=== PATIENT | male | born 1980 | race Caucasian/White ===

== ENCOUNTER 2017-11-25 13:04 | Emergency (ER) | payer OTHER, BC ==
--- NOTE | 2017-11-25 13:42 | EDM.PDOC ---
ED HPI GENERAL MEDICAL PROBLEM - General Chief Complaint: Head Injury Stated Complaint: FELL AND HIT HIS HEAD Time Seen by Provider: 11/25/17 13:16 - History of Present Illness INITIAL COMMENTS - FREE TEXT/NARRATIVE: HISTORY AND PHYSICAL: History of present illness: The patient is a 37-year-old male who presents from his job at the [employer] after having a simple fall and complaining of some posterior head left neck and left upper back pain. The patient says he was in his usual state of good health when he was at work and was walking backwards up an incline and lost his footing and fell backwards hitting his left upper chest wall and head on a door jam and then falling to the ground. He did not pass out or blackout and has no neck pain or midline thoracic or lower back pain. He has no neurosensory changes in his arms and no weakness but he has some ache to the left upper back area where he impacted the door jam. He doesn't have any nausea or vomiting no chest pain or shortness of breath and no extremity complaints. He did not take any medication prior to coming to the ED and says that he actually did not want to even come here for evaluation but his employer required it. Review of systems: As per history of present illness and below otherwise all systems reviewed and negative. Past medical history: As per history of present illness and as reviewed below otherwise noncontributory. Surgical history: As per history of present illness and as reviewed below otherwise noncontributory. Social history: No reported history of drug or alcohol abuse. Family history: As per history of present illness and as reviewed below otherwise noncontributory. Physical exam: General: Well-developed well-nourished man who is nontoxic and mildly overweight. He ambulated into the ED without distress and vital signs are noted by me HEENT: Atraumatic, normocephalic, there is no palpable bony deformity of the skull and no scalp soft tissue swelling or trauma is appreciated, EOMs are intact, pupils reactive, negative for conjunctival pallor or scleral icterus, mucous membranes moist, throat clear, neck supple, nontender, trachea midline. There are no midline step-offs tenderness defects of the cervical spine and no paraspinal trapezius muscle tenderness on palpation. Lungs: Clear to auscultation, breath sounds equal bilaterally, chest nontender. Heart: S1S2, regular rate and rhythm no overt murmurs Abdomen: Soft, nondistended, nontender. NABS Pelvis: Deferred Genitourinary: Deferred. Rectal: Deferred. Extremities: Atraumatic, full range of motion without defects or deficits negative for cords or calf pain. Neurovascular unremarkable. Neuro: Awake, alert, oriented. Cranial nerves II through XII unremarkable. Cerebellum unremarkable. Motor and sensory unremarkable throughout. Exam nonfocal. Back: There are no midline step-offs tenderness defects of the thoracic or lumbar spine and there is some mild soft tissue tenderness with palpation of the entire left upper back area without defects or deformities. Diagnostics: [] Therapeutics: The patient was offered Tylenol or Motrin and defers at this time Impression: Contusion of left upper back and head status post minor fall Definitive disposition and diagnosis as appropriate pending reevaluation and review of above. head Pain Score (Numeric/FACES): 8 - Related Data Allergies Allergy/AdvReac Type Severity Reaction Status Date / Time No Known Allergies Allergy Verified 11/25/17 13:18 Home Meds: Home Meds . [No Known Home Meds] 05/04/16 [History] Past Medical History - Past Health History Medical/Surgical History: Denies Medical/Surgical History - Infectious Disease History Infectious Disease History: Reports: Chicken Pox, Measles Social & Family History - Family History Family Medical History: Unobtainable - Tobacco Use Smoking Status *Q: Never Smoker - Caffeine Use Caffeine Use: Reports: Coffee, Energy Drinks - Alcohol Use Days Per Week of Alcohol Use: 2 Number of Drinks Per Day: 1 Total Drinks Per Week: 2 - Recreational Drug Use Recreational Drug Use: No ED ROS GENERAL - Review of Systems Review Of Systems: ROS reveals no pertinent complaints other than HPI. ED EXAM, HEAD INJURY - Physical Exam Exam: See Below (See dictation) Course - Vital Signs Last Recorded V/S: Last Vital Signs Temp 36.1 C 11/25/17 13:19 Pulse 60 11/25/17 13:19 Resp 18 11/25/17 13:19 BP 139/80 11/25/17 13:19 Pulse Ox 96 11/25/17 13:19 Departure - Departure Time of Disposition: 13:43 Disposition: Home, Self-Care 01 Condition: Good Clinical Impression: Contusion of upper back Qualifiers: Encounter type: initial encounter Laterality: left Qualified Code(s): S20.222A - Contusion of left back wall of thorax, initial encounter Contusion of head Qualifiers: Encounter type: initial encounter Contusion of head detail: unspecified part of head Qualified Code(s): S00.93XA - Contusion of unspecified part of head, initial encounter - Discharge Information Referrals: PCP,None [Primary Care Provider] - Additional Instructions: The following information is given to patients seen in the emergency department who are being discharged to home. This information is to outline your options for follow-up care. We provide all patients seen in our emergency department with a follow-up referral. The need for follow-up, as well as the timing and circumstances, are variable depending upon the specifics of your emergency department visit. If you don't have a primary care physician on staff, we will provide you with a referral. We always advise you to contact your personal physician following an emergency department visit to inform them of the circumstance of the visit and for follow-up with them and/or the need for any referrals to a consulting specialist. The emergency department will also refer you to a specialist when appropriate. This referral assures that you have the opportunity for followup care with a specialist. All of these measure are taken in an effort to provide you with optimal care, which includes your followup. Under all circumstances we always encourage you to contact your private physician who remains a resource for coordinating your care. When calling for followup care, please make the office aware that this follow-up is from your recent emergency room visit. If for any reason you are refused follow-up, please contact the [facility] emergency department at and ask to speak to the emergency department charge nurse. [facility] Primary care- Internal Medicine and Family [address] [address] Use ice to all areas of pain and swelling and expect aches for the next several days to one week. Use [id number] Tylenol or ibuprofen for pain. Please call and follow-up with your provider in the clinic or one of our providers in the next few days for reevaluation and further care. Return to ER as needed and as we discussed
[2017-11-25 14:03] VITALS: BP 134/75
== END 2017-11-25 14:00 | disposition home or self-care (01) ==
LOC: MW.ED 13:04
DX: S20.222A Contusion of left back wall of thorax, initial encounter (principal); S00.93XA Contusion of unspecified part of head, initial encounter; W19.XXXA Unspecified fall, initial encounter
CPT/HCPCS: 99282

== ENCOUNTER 2024-06-19 16:53 | Emergency (ER) | payer OTHER ==
[2024-06-19] MEDS: Sodium Chloride 0.9% 1,000 ML IV ONE (20:13)
[2024-06-19 20:27] LABS: APPEARANCE,URINE CLEAR; BILIRUBIN,URINE NEGATIVE (NEGATIVE); COLOR,URINE YELLOW; GLUCOSE,URINE NEGATIVE (NEGATIVE); KETONES,URINE NEGATIVE (NEGATIVE); LEUKOCYTE ESTERASE,URINE NEGATIVE (NEGATIVE); NITRITE,URINE NEGATIVE (NEGATIVE); OCCULT BLOOD,URINE NEGATIVE (NEGATIVE); PROTEIN,URINE NEGATIVE (NEGATIVE); UROBILINOGEN,URINE 0.2 EU/dL (<2.0)
[2024-06-19 20:37] LABS: BASOPHILS ABSOLUTE AUTO 0.03 K/uL (0.00-0.20); BASOPHILS PERCENT AUTO 0.3 % (0.0-1.0); EOSINOPHILS ABSOLUTE AUTO 0.17 K/uL (0.00-0.45); EOSINOPHILS PERCENT AUTO 1.6 % (0.0-6.0); HEMATOCRIT 40.8 % (42.0-52.0); HEMOGLOBIN 13.8 g/dL (14.0-18.0); IMMATURE GRAN ABSOLUTE AUTO 0.04 K/uL (0.00-0.05); IMMATURE GRAN PERCENT AUTO 0.4 % (0.0-0.4); LYMPHOCYTES ABSOLUTE AUTO 3.57 K/uL (1.00-4.80); LYMPHOCYTES PERCENT AUTO 33.4 % (24.0-44.0); MEAN CORPUSCULAR HGB CONC 33.8 g/dL (32.0-36.0); MEAN CORPUSCULAR VOLUME 88.7 fL (83.0-99.0); MEAN PLATELET VOLUME 10.4 fL (9.4-12.4); MONOCYTES ABSOLUTE AUTO 1.09 K/uL (0.00-0.80); MONOCYTES PERCENT AUTO 10.2 % (0.0-8.0); NEUTROPHILS PERCENT AUTO 54.1 % (41.0-71.0); PLATELET COUNT,PLT 257 K/uL (150-400)
[2024-06-19 20:51] LABS: INR 1.05 (0.86-1.11); PTT,PARTIAL THROMBOPLSTIN TIME 28.2 SEC (23.9-30.7)
[2024-06-19] MEDS: Iopamidol 755 MG/ML 500 ML Multipack Bottle IVPUSH ONE (20:58)
[2024-06-19 21:21] LABS: A/G RATIO 0.9 (0.9-1.6); ALBUMIN 3.8 g/dL (3.4-5.0); BILIRUBIN TOTAL 0.2 mg/dL (0.2-1.0); CALCIUM 8.7 mg/dL (8.5-10.1); CARBON DIOXIDE,CO2 29.5 mmol/L (21.0-32.0); EST CRCL DRUG DOSING (CG) 83.71 mL/min; MAGNESIUM 2.2 mg/dL (1.8-2.4); PROTEIN TOTAL,TP 7.9 g/dL (6.4-8.2)
[2024-06-19] MEDS: Ciprofloxacin 500 MG Tab PO STA (22:05)
[2024-06-19] MEDS: metroNIDAZOLE 250 MG Tab PO ONE (22:05)
[2024-06-19 22:19] VITALS: BP 150/80; PULSE 74
== END 2024-06-19 22:14 | disposition home or self-care (01) ==
LOC: MW.ED 16:53
DX: K57.32 Diverticulitis of large intestine without perforation or abscess without bleeding (principal); R20.2 Paresthesia of skin; Z75.8 Other problems related to medical facilities and other health care
CPT/HCPCS: 36415; 70450; 70496; 70498; 74177; 80053; 81003; 82947; 83690; 83735; 85025; 85610; 85730; 96360; 99284; A9270; J7030; Q9967

== ENCOUNTER 2025-04-24 13:51 | Inpatient (IN) | payer OTHER ==
[2025-04-24] MEDS ORDERED: Sodium Chloride 0.9% 10 ML Syringe FLUSH PRN ×2 (14:24→18:10)
[2025-04-24] MEDS ORDERED: Sodium Chloride 0.9% 2.5 ML Syringe FLUSH PRN ×2 (14:24→18:10)
[2025-04-24 14:30] LABS: BASOPHILS ABSOLUTE AUTO 0.05 K/uL (0.00-0.20); BASOPHILS PERCENT AUTO 0.4 % (0.0-1.0); EOSINOPHILS ABSOLUTE AUTO 0.16 K/uL (0.00-0.45); EOSINOPHILS PERCENT AUTO 1.3 % (0.0-6.0); IMMATURE GRAN ABSOLUTE AUTO 0.03 K/uL (0.00-0.05); IMMATURE GRAN PERCENT AUTO 0.2 % (0.0-0.4); LYMPHOCYTES ABSOLUTE AUTO 2.49 K/uL (1.00-4.80); LYMPHOCYTES PERCENT AUTO 20.6 % (24.0-44.0); MEAN PLATELET VOLUME 10.6 fL (9.4-12.4); MONOCYTES ABSOLUTE AUTO 1.01 K/uL (0.00-0.80); MONOCYTES PERCENT AUTO 8.3 % (0.0-8.0); NEUTROPHILS ABSOLUTE AUTO 8.37 K/uL (1.80-7.70); NEUTROPHILS PERCENT AUTO 69.2 % (41.0-71.0); NRBC ABSOLUTE 0.00 K/uL (0.00-0.02); NRBC PERCENT 0.0 /100WBC (0.0-0.2); PLATELET COUNT,PLT 282 K/uL (150-400); RED BLOOD CELL COUNT 5.06 M/uL (4.52-5.90); WHITE BLOOD CELL COUNT,WBC 12.11 K/uL (3.9-11.3)
[2025-04-24 14:38] LABS: INR 1.06 (0.86-1.11); PTT,PARTIAL THROMBOPLSTIN TIME 21.4 SEC (23.9-30.7)
[2025-04-24 14:47] LABS: A/G RATIO 0.9 (0.9-1.6); ALANINE AMINOTRANSFERASE,ALT 40.0 IU/L (14-63); ASPARTATE AMNIOTRANSFERASE,AST 32.0 IU/L (15-37); BILIRUBIN TOTAL 0.3 mg/dL (0.2-1.0); BLOOD UREA NITROGEN,BUN 21.0 mg/dL (7.0-18.0); CARBON DIOXIDE,CO2 30.3 mmol/L (21.0-32.0); CHLORIDE,CL 99.0 mmol/L (98-107); CREATININE 1.1 mg/dL (0.8-1.3); EST CRCL DRUG DOSING (CG) 78.14 mL/min; ESTIMATED GFR 85.0 mL/min (>60); GLUCOSE RANDOM 121.0 mg/dL (74-106); POTASSIUM,K 3.9 mmol/L (3.5-5.1); PROTEIN TOTAL,TP 8.7 g/dL (6.4-8.2); SODIUM,NA 139.0 mmol/L (136-148)
[2025-04-24 14:52] LABS: APPEARANCE,URINE CLEAR; GLUCOSE,URINE NEGATIVE (NEGATIVE); OCCULT BLOOD,URINE NEGATIVE (NEGATIVE)
[2025-04-24] MEDS: Iopamidol 755 MG/ML 500 ML Multipack Bottle IVPUSH STA (15:42)
[2025-04-24] MEDS ORDERED: Naloxone 0.4 MG/ML SDV IVPUSH PRN (18:10)
[2025-04-24] MEDS ORDERED: Ondansetron 4 MG/2 ML SDV IVPUSH PRN (18:10)
[2025-04-24] MEDS: Pantoprazole 40 MG in Sodium Chloride 0.9% 20 ML IVPUSH SCH (19:15)
[2025-04-25 05:43] LABS: BASOPHILS ABSOLUTE AUTO 0.04 K/uL (0.00-0.20); BASOPHILS PERCENT AUTO 0.4 % (0.0-1.0); EOSINOPHILS ABSOLUTE AUTO 0.14 K/uL (0.00-0.45); EOSINOPHILS PERCENT AUTO 1.5 % (0.0-6.0); IMMATURE GRAN ABSOLUTE AUTO 0.04 K/uL (0.00-0.05); IMMATURE GRAN PERCENT AUTO 0.4 % (0.0-0.4); LYMPHOCYTES ABSOLUTE AUTO 2.27 K/uL (1.00-4.80); LYMPHOCYTES PERCENT AUTO 23.7 % (24.0-44.0); MEAN PLATELET VOLUME 10.2 fL (9.4-12.4); MONOCYTES ABSOLUTE AUTO 0.97 K/uL (0.00-0.80); MONOCYTES PERCENT AUTO 10.1 % (0.0-8.0); NEUTROPHILS ABSOLUTE AUTO 6.13 K/uL (1.80-7.70); NEUTROPHILS PERCENT AUTO 63.9 % (41.0-71.0); NRBC ABSOLUTE 0.00 K/uL (0.00-0.02); NRBC PERCENT 0.0 /100WBC (0.0-0.2); PLATELET COUNT,PLT 229 K/uL (150-400); RED BLOOD CELL COUNT 4.49 M/uL (4.52-5.90); WHITE BLOOD CELL COUNT,WBC 9.59 K/uL (3.9-11.3)
[2025-04-25 06:28] LABS: A/G RATIO 0.9 (0.9-1.6); ALANINE AMINOTRANSFERASE,ALT 33.0 IU/L (14-63); ASPARTATE AMNIOTRANSFERASE,AST 19.0 IU/L (15-37); BILIRUBIN TOTAL 0.5 mg/dL (0.2-1.0); BLOOD UREA NITROGEN,BUN 12.0 mg/dL (7.0-18.0); CARBON DIOXIDE,CO2 28.0 mmol/L (21.0-32.0); CHLORIDE,CL 103.0 mmol/L (98-107); CREATININE 1.0 mg/dL (0.8-1.3); EST CRCL DRUG DOSING (CG) 86.39 mL/min; ESTIMATED GFR 96.0 mL/min (>60); GLUCOSE RANDOM 87.0 mg/dL (74-106); POTASSIUM,K 4.0 mmol/L (3.5-5.1); PROTEIN TOTAL,TP 7.2 g/dL (6.4-8.2); SODIUM,NA 139.0 mmol/L (136-148)
[2025-04-26 04:56] VITALS: PULSE 60
[2025-04-26 06:06] LABS: BASOPHILS ABSOLUTE AUTO 0.04 K/uL (0.00-0.20); BASOPHILS PERCENT AUTO 0.4 % (0.0-1.0); EOSINOPHILS ABSOLUTE AUTO 0.16 K/uL (0.00-0.45); EOSINOPHILS PERCENT AUTO 1.7 % (0.0-6.0); IMMATURE GRAN ABSOLUTE AUTO 0.03 K/uL (0.00-0.05); IMMATURE GRAN PERCENT AUTO 0.3 % (0.0-0.4); LYMPHOCYTES ABSOLUTE AUTO 2.55 K/uL (1.00-4.80); LYMPHOCYTES PERCENT AUTO 26.3 % (24.0-44.0); MEAN PLATELET VOLUME 10.2 fL (9.4-12.4); MONOCYTES ABSOLUTE AUTO 0.80 K/uL (0.00-0.80); MONOCYTES PERCENT AUTO 8.3 % (0.0-8.0); NEUTROPHILS ABSOLUTE AUTO 6.11 K/uL (1.80-7.70); NEUTROPHILS PERCENT AUTO 63.0 % (41.0-71.0); NRBC ABSOLUTE 0.00 K/uL (0.00-0.02); NRBC PERCENT 0.0 /100WBC (0.0-0.2); PLATELET COUNT,PLT 255 K/uL (150-400); RED BLOOD CELL COUNT 4.82 M/uL (4.52-5.90); WHITE BLOOD CELL COUNT,WBC 9.69 K/uL (3.9-11.3)
[2025-04-26 06:22] LABS: BLOOD UREA NITROGEN,BUN 10.0 mg/dL (7.0-18.0); CARBON DIOXIDE,CO2 29.6 mmol/L (21.0-32.0); CHLORIDE,CL 104.0 mmol/L (98-107); CREATININE 1.1 mg/dL (0.8-1.3); EST CRCL DRUG DOSING (CG) 78.54 mL/min; ESTIMATED GFR 85.0 mL/min (>60); GLUCOSE RANDOM 89.0 mg/dL (74-106); POTASSIUM,K 4.2 mmol/L (3.5-5.1); SODIUM,NA 139.0 mmol/L (136-148)
[2025-04-26 07:59] VITALS: BP 131/67
[2025-04-26 12:25] LABS: C. TRACHOMATIS BY PCR NOT DETECTED; N. GONORRHOEAE BY PCR NOT DETECTED
== END 2025-04-26 10:35 | disposition home or self-care (01) | DRG 728 ==
LOC: MW.ED 13:51 → MW.MS 17:25
PROVIDERS: ADMIT Family Medicine; ATTEND Family Medicine
DX: K57.20 Diverticulitis of large intestine with perforation and abscess without bleeding (principal); N45.2 Orchitis; M45.2 Ankylosing spondylitis of cervical region; K76.0 Fatty (change of) liver, not elsewhere classified; Z98.890 Other specified postprocedural states
CPT/HCPCS: 36415; 74177; 76870; 80053; 81003; 82977; 83605; 83690; 83735; 84484; 85025; 85610; 85730; 86308; 87040 ×2; 93976; 99285; Q9967; 80048; 86592; 87389; 87491; 87591; A9270-GY; J1271; J1650; J2470; J2543; J7030